=== PATIENT | female | born 1990 | race Caucasian/White ===

== ENCOUNTER 2018-07-19 21:46 | Inpatient (IN) | payer BC ==
[~2018-07-19] VITALS: Ht 160 cm; Wt 84.4 kg
[2018-07-21] MEDS ORDERED: OXYTOCIN 30U/ 0.9% NaCL 500ML 500 ML IV ONE (04:39)
[2018-07-21] MEDS ORDERED: LACTATED RINGERS 1,000 ML IV SCH (04:39)
[2018-07-21] MEDS ORDERED: D5%-LACTATED RINGERS 1,000 ML IV SCH (04:39)
[2018-07-21 04:50] VITALS: BP 122/59
[2018-07-21] MEDS ORDERED: ONDANSETRON 2MG/ML, 2ML IVPush PRN (05:00)
[2018-07-21] MEDS ORDERED: FENTANYL PF 100 MCG/2ML IV PRN (05:00)
[2018-07-21] MEDS ORDERED: OXYTOCIN 30U/ 0.9% NaCL 500ML 500 ML ONE (05:07)
[2018-07-21] MEDS ORDERED: OXYTOCIN 30U/ 0.9% NaCL 500ML 500 ML IV PRN (05:07)
[2018-07-21] MEDS ORDERED: LIDOCAINE 1%, 20ML ONE (05:08)
[2018-07-21] MEDS ORDERED: MISOPROSTOL 200 MCG TABLET ONE (05:08)
[2018-07-21 05:12] LABS: BASOPHILS # (AUTO) 0.03 x10^3/uL (0-0.1); BASOPHILS % (AUTO) 0 % (0-1); EOSINOPHILS # (AUTO) 0.02 x10^3/uL (0-0.4); EOSINOPHILS % (AUTO) 0 % (1-7); LYMPHOCYTES # (AUTO) 2.01 x10^3/uL (1-3.4); LYMPHOCYTES % (AUTO) 22 % (22-44); MD NO; MEAN CORPUSCULAR HGB CONC 33.4 g/dL (32.4-35.8); MEAN CORPUSCULAR VOLUME 77.8 fL (80-100); MEAN PLATELET VOLUME 9.8 fL (7.4-10.4); MONOCYTES # (AUTO) 0.47 x10^3/uL (0.2-0.8); MONOCYTES % (AUTO) 5 % (2-9); NEUTROPHILS # (AUTO) 6.52 x10^3/uL (1.8-6.8); NEUTROPHILS % (AUTO) 72 % (42-75); PLATELET COUNT 213 x10^3/uL (130-400); RED CELL DISTRIBUTION WIDTH 16.9 % (9.6-15.2)
[2018-07-21 07:17] VITALS: BP 112/60
[2018-07-21] MEDS ORDERED: FENTANYL PF 100 MCG/2ML ONE ×3 (14:13→16:02)
[2018-07-21] MEDS: FENTANYL PF 100 MCG/2ML IVPush PRN ×2 (14:18→15:17)
[2018-07-21] MEDS ORDERED: FENTANYL/BUPIV./NS/PF 250 ML EPIDCONT SCH (15:25)
[2018-07-21] MEDS ORDERED: EPHEDRINE 50 MG/ML, 1ML IVPush PRN (15:30)
[2018-07-21] MEDS ORDERED: LACTATED RINGERS 1,000 ML IVBOLUS PRN (15:30)
[2018-07-21] MEDS ORDERED: FENTANYL PF 500 MCG, BUPIVACAINE/PF 0.5%, 30ML 62.5 ML in SODIUM CHLORIDE 0.9% 177.5 ML EPIDCONT SCH (15:30)
[2018-07-21] MEDS ORDERED: BUPIVACAINE 0.25% ONE (16:02)
[2018-07-22] MEDS: FENTANYL PF 100 MCG/2ML IVPush PRN (02:15)
[2018-07-22] MEDS ORDERED: FENTANYL PF 100 MCG/2ML ONE (02:18)
[2018-07-22] MEDS ORDERED: OXYTOCIN 30U/ 0.9% NaCL 500ML 500 ML ONE (03:42)
[2018-07-22] MEDS ORDERED: IBUPROFEN 800 MG TABLET PO PRN (04:00)
[2018-07-22] MEDS ORDERED: METOCLOPRAMIDE 5 MG/ML, 2ML IV PRN (04:00)
[2018-07-22] MEDS ORDERED: MISOPROSTOL 200 MCG TABLET PR PRN (04:00)
[2018-07-22] MEDS ORDERED: BISACODYL 10 MG SUPP PR PRN (04:00)
[2018-07-22] MEDS ORDERED: ONDANSETRON 2MG/ML, 2ML IV PRN (04:00)
[2018-07-22] MEDS ORDERED: METHYLERGONOVINE 0.2 MG/ML IM PRN (04:00)
[2018-07-22] MEDS ORDERED: GLYCERIN ADULT SUPP PR PRN (04:00)
[2018-07-22] MEDS ORDERED: OXYcodone/APAP 5/325MG TABLET PO PRN (04:00)
[2018-07-22 05:25] VITALS: BP 103/58
[2018-07-22] MEDS: OXYTOCIN 30U/ 0.9% NaCL 500ML 500 ML IV SCH ×2 (05:30→13:50)
[2018-07-22] MEDS: LACTATED RINGERS 1,000 ML IV SCH ×3 (05:30→15:25)
[2018-07-22] MEDS: DOCUSATE 100 MG CAPSULE PO PRN ×2 (07:27→20:12)
[2018-07-22] MEDS: IBUPROFEN 600 MG TABLET PO PRN ×3 (07:27→20:12)
[2018-07-22 08:00] VITALS: BP 132/77
[2018-07-22] MEDS ORDERED: PRENATAL VIT/IRON/FA 1 EACH TABLET PO SCH (09:00)
[2018-07-22 10:51] LABS: MEAN CORPUSCULAR VOLUME 78.3 fL (80-100); MEAN PLATELET VOLUME 9.6 fL (7.4-10.4); PLATELET COUNT 186 x10^3/uL (130-400); RED BLOOD COUNT 3.99 x10^6/uL (3.82-5.3); RED CELL DISTRIBUTION WIDTH 16.7 % (9.6-15.2)
[2018-07-22 11:16] LABS: MD YES
[2018-07-22 11:20] LABS: <PLATELET ESTIMATE> ADEQUATE; <PLT MORPHOLOGY> NORMAL PLT MORPH; ANISOCYTOSIS 1+; BAND#(MANUAL) 2.31 x10^3/uL; BANDS%(MANUAL) 15 % (0-7); LYMPH#(MANUAL) 2.62 x10^3/uL (1-3.4); LYMPHS% (MANUAL) 17 % (22-44); MONOS#(MANUAL) 0.46 x10^3/uL (0.3-2.7); MONOS% (MANUAL) 3 % (2-9); NRBC % (MANUAL) 1 % (0-1); POLYCHROMASIA 1+; SEG#(MANUAL) 10.01 x10^3/uL (1.8-6.8); SEGS% (MANUAL) 65 % (42-75)
[2018-07-22 12:00] VITALS: BP 114/68
[2018-07-22] MEDS: OXYcodone/APAP 5/325MG TABLET PO PRN ×3 (12:21→22:03)
[2018-07-22 16:00] VITALS: BP 116/68
[2018-07-22 20:00] VITALS: BP 113/69
[2018-07-23] MEDS: IBUPROFEN 600 MG TABLET PO PRN ×2 (02:48→11:59)
[2018-07-23] MEDS: OXYcodone/APAP 5/325MG TABLET PO PRN (02:49)
[2018-07-23] MEDS ORDERED: IBUP-1222 PO (07:55)
[2018-07-23 08:00] VITALS: BP 115/70
[2018-07-23] MEDS: DOCUSATE 100 MG CAPSULE PO PRN (11:59)
== END 2018-07-23 13:15 | disposition home or self-care (01) | DRG 768 ==
LOC: UNDOADMIN 21:46 → LDIP 21:46 → 2NW 07-22 05:10
PROVIDERS: ADMIT Student in an Organized Health Care Education/Training Program; ATTEND Student in an Organized Health Care Education/Training Program
PROC: 10D07Z6 Extraction of Products of Conception, Vacuum, Via Natural or Artificial Opening (ICD-10-PCS; principal; 2018-07-22)
PROC: 0DQR0ZZ Repair Anal Sphincter, Open Approach (ICD-10-PCS; 2018-07-22)
PROC: 3E033VJ Introduction of Other Hormone into Peripheral Vein, Percutaneous Approach (ICD-10-PCS; 2018-07-22)
PROC: 10907ZC Drainage of Amniotic Fluid, Therapeutic from Products of Conception, Via Natural or Artificial Opening (ICD-10-PCS; 2018-07-22)
PROC: 3E0R3BZ Introduction of Anesthetic Agent into Spinal Canal, Percutaneous Approach (ICD-10-PCS; 2018-07-22)
PROC: 00HU33Z Insertion of Infusion Device into Spinal Canal, Percutaneous Approach (ICD-10-PCS; 2018-07-22)
PROC: 0W8NXZZ Division of Female Perineum, External Approach (ICD-10-PCS; 2018-07-22)
DX: O75.81 Maternal exhaustion complicating labor and delivery (principal); Z37.0 Single live birth; O70.20 Third degree perineal laceration during delivery, unspecified; Z3A.40 40 weeks gestation of pregnancy; Z83.3 Family history of diabetes mellitus; Z82.49 Family history of ischemic heart disease and other diseases of the circulatory system
CPT/HCPCS: 36415; J7121; 85025; 86850; 86900; G0378; J3010; J3490; J2590; J7050; J7120